=== PATIENT | female | born 1965 | race Two or more races ===

== ENCOUNTER 2016-12-09 06:17 | Day surgery (SDC) | payer OTHER ==
[2016-12-08 13:16] VITALS: BMI 36.2
[~2016-12-09 06:17] MED LIST: ceFAZolin SODIUM 1 GM VIAL IVPB ONE
[2016-12-09] MEDS ORDERED: ROPIVACAINE HCL 0.5% 30ML VIAL ONE (07:46)
[2016-12-09] MEDS ORDERED: MIDAZOLAM HCL 2 MG/2 ML SINGLE DOSE VIAL ONE ×2 (07:47)
--- NOTE | 2016-12-09 08:10 | HP ---
Admitting History and Physical - Admission Chief Complaint: Pelvic pain History of Present Illness: 51 yo Para 1, with Leiomyoma of the uterus is Pre op for abdominal hysterectomy. History Source: Patient Limitations to Obtaining History: No Limitations - Past Medical History ...LMP: 11/28/16 ...: No - Past Surgical History Past Surgical History: Yes: None - Smoking History Smoking history: Never smoked Have you smoked in the past 12 months: No - Alcohol/Substance Use Hx Alcohol Use: No History of Substance Use: reports: None - Social History Usual Living Arrangement: Yes: Alone History of Recent Travel: No Home Medications - Allergies Allergies/Adverse Reactions: Allergies Allergy/AdvReac Type Severity Reaction Status Date / Time No Known Drug Allergies Allergy Verified 12/09/16 07:13 - Home Medications Home Medications: Ambulatory Orders Amlodipine Besylate 5 mg PO DAILY 12/08/16 Family Disease History - Family Disease History Family History: Unremarkable Review of Systems - Review of Systems Constitutional: reports: No Symptoms Eyes: reports: No Symptoms HENT: reports: No Symptoms Neck: reports: No Symptoms Cardiovascular: reports: No Symptoms Respiratory: reports: No Symptoms Gastrointestinal: reports: No Symptoms Genitourinary: reports: Pain Breasts: reports: No Symptoms Reported Musculoskeletal: reports: No Symptoms Integumentary: reports: No Symptoms Neurological: reports: No Symptoms Endocrine: reports: No Symptoms Hematology/Lymphatic: reports: No Symptoms Psychiatric: reports: No Symptoms Pain Intensity: 3 Physical Examination Vital Signs: Vital Signs Temperature 97.6 F 12/09/16 07:03 Pulse Rate 71 12/09/16 07:03 Respiratory Rate 20 12/09/16 07:03 Blood Pressure 121/76 12/09/16 07:03 O2 Sat by Pulse Oximetry (%) 99 12/09/16 07:03 Constitutional: Yes: Well Nourished Eyes: Yes: Conjunctiva Clear HENT: Yes: Atraumatic Neck: Yes: Supple, Trachea Midline Cardiovascular: Yes: Regular Rate and Rhythm Respiratory: Yes: Regular, CTA Bilaterally Gastrointestinal: Yes: Normal Bowel Sounds Breast(s): Yes: WNL Musculoskeletal: Yes: WNL Extremities: Yes: WNL Neurological: Yes: Alert, Oriented ...Motor Strength: WNL Psychiatric: Yes: Alert, Oriented Problem List - Problems (1) Leiomyoma of uterus Code(s): D25.9 - LEIOMYOMA OF UTERUS, UNSPECIFIED Assessment/Plan Leiomyoma of the uterus Pre op for Hysterectomy Consent signed Anesthesia to see patient
--- NOTE | 2016-12-09 08:11 | OP ---
Operative Note - Note: Operative Date: 12/09/16 Pre-Operative Diagnosis: Leiomyoma of the uterus Operation: Abdominal hysterectomy Findings: Multiple Intramural myomas Post-Operative Diagnosis: Same as Pre-op Surgeon: Dolores Reis [employer] Sales Representative: Yara Astudillo Anesthesia: General Specimens Removed: Uterus / Tubes Estimated Blood Loss (mls): 150
[2016-12-09] MEDS ORDERED: ceFAZolin SODIUM 1 GM VIAL ONE (08:22)
[2016-12-09] MEDS ORDERED: PROPOFOL 20 ML ONE ×2 (08:22)
[2016-12-09] MEDS ORDERED: LIDOCAINE HCL/PF 2% SDV 5ML VIAL ONE (08:22)
[2016-12-09] MEDS ORDERED: ceFAZolin SODIUM 1 GM VIAL IVPB ONE (08:47)
[2016-12-09] MEDS ORDERED: DEXAMETHASONE SOD PHOSPHATE 4 MG/1 ML VIAL ONE (09:32)
[2016-12-09] MEDS ORDERED: NEOSTIGMINE METHYLSULFATE 0.5 MG/ML - 10 ML MDV ONE (09:32)
[2016-12-09] MEDS ORDERED: GLYCOPYRROLATE 0.2 MG/1 ML VIAL ONE (09:32)
[2016-12-09] MEDS ORDERED: IBUPROFEN 800 MG/8 ML IJ IVPB PRN (10:10)
[2016-12-09] MEDS ORDERED: CEFAZOLIN (PRE-DOCKED) 50 ML IVPB SCH (10:15)
[2016-12-09] MEDS ORDERED: ONDANSETRON 4 MG/2 ML VIAL IVPUSH PRN (10:26)
[2016-12-09] MEDS ORDERED: ACETAMINOPHEN 1000 MG/100 ML VIAL (NON FORMULARY) IVPB PRN (10:27)
[2016-12-09] MEDS ORDERED: HYDROmorphone HCL CARPU-JECT 2 MG/1 ML DISP.SYRIN ONE (10:31)
[2016-12-09] MEDS: HYDROmorphone HCL CARPU-JECT 1 MG/1 ML DISP.SYRIN IVPUSH PRN ×2 (10:45→11:40)
[2016-12-09] MEDS: LACTATED RINGERS SOLUTION 1,000 ML IV SCH (14:02)
[2016-12-09] MEDS: DEXTROSE 5%-LACTATED RINGERS 1,000 ML IV SCH (14:02)
[2016-12-09] MEDS: CEFAZOLIN (PRE-DOCKED) 50 ML IVPB SCH (18:22)
[2016-12-10] MEDS: oxyCODONE HCL 5 MG TABLET PO PRN ×2 (01:18→10:43)
[2016-12-10] MEDS: CEFAZOLIN (PRE-DOCKED) 50 ML IVPB SCH (01:18)
[2016-12-10 08:49] LABS: MCH 29.9 pg (25.7-33.7); MCHC 34.2 g/dl (32.0-36.0); MEAN CELL VOLUME 87.6 fl (80-96); MEAN PLT VOLUME 9.4 fl (7.5-11.1); PLATELET COUNT 303 K/MM3 (134-434); RDW 13.6 % (11.6-15.6); WHITE BLOOD COUNT 14.8 K/mm3 (4.0-10.0)
[2016-12-10] MEDS ORDERED: ACETAMINOPHEN 325 MG TABLET (FP) ONE (10:36)
[2016-12-10] MEDS: DEXTROSE 5%-LACTATED RINGERS 1,000 ML IV SCH (10:41)
[2016-12-10] MEDS: LACTATED RINGERS SOLUTION 1,000 ML IV SCH (10:42)
--- NOTE | 2016-12-10 10:47 | PN ---
Progress Note, Physician Chief Complaint: Post op History of Present Illness: 51 yo status post Subtotal hysterectomy, seen and evaluated. She's ambulating and tolerates regular diet. She c/o gas pain. - Current Medication List Current Medications: Active Medications Dextrose/Lactated Ringer's (D5-Lr -) 1,000 mls @ 125 mls/hr IV ASDIR TERE Last Admin: 12/09/16 14:02 Dose: Not Given Lactated Ringer's (Lactated Ringers Solution) 1,000 mls @ 125 mls/hr IV ASDIR TERE Last Admin: 12/09/16 14:02 Dose: Not Given Ibuprofen (Caldolor Injection -) 800 mg IVPB Q8H PRN PRN Reason: FEVER Last Admin: 12/09/16 12:15 Dose: 800 mg Oxycodone HCl (Roxicodone -) 5 mg PO Q4H PRN PRN Reason: PAIN Last Admin: 12/10/16 01:18 Dose: 5 mg - Objective Vital Signs: Vital Signs Temperature 98.4 F 12/10/16 06:00 Pulse Rate 85 12/10/16 06:00 Respiratory Rate 20 12/10/16 06:00 Blood Pressure 112/71 12/10/16 06:00 O2 Sat by Pulse Oximetry (%) 98 12/09/16 17:00 Constitutional: Yes: Well Nourished Eyes: Yes: Conjunctiva Clear HENT: Yes: Atraumatic Neck: Yes: Trachea Midline Cardiovascular: Yes: Regular Rate and Rhythm Respiratory: Yes: Regular, CTA Bilaterally Gastrointestinal: Yes: Normal Bowel Sounds Genitourinary: Yes: Other ( Fernández catheter removed) Wound/Incision: Yes: Dressing Dry and Intact Neurological: Yes: Alert, Oriented ...Motor Strength: WNL Psychiatric: Yes: Alert, Oriented Labs: CBC, BMP 12/10/16 08:15 Problem List - Problems (1) Leiomyoma of uterus Code(s): D25.9 - LEIOMYOMA OF UTERUS, UNSPECIFIED (2) Status post subtotal hysterectomy Code(s): Z90.711 - ACQUIRED ABSENCE OF UTERUS WITH REMAINING CERVICAL STUMP Assessment/Plan Status post Subtotal Hysterectomy and bilateral Salpingectomy. Ambulation Analgesia PRN pain Regular diet D/C IVF Discharge home F/U with MD in one week
[2016-12-10] MEDS ORDERED: IBUPROFEN 600 MG TABLET (FP) PO PRN (10:49)
--- NOTE | 2016-12-10 10:49 | DS ---
Physical Examination Vital Signs: Vital Signs Temperature 98.4 F 12/10/16 06:00 Pulse Rate 85 12/10/16 06:00 Respiratory Rate 20 12/10/16 06:00 Blood Pressure 112/71 12/10/16 06:00 O2 Sat by Pulse Oximetry (%) 98 12/09/16 17:00 Constitutional: Yes: Well Nourished Eyes: Yes: Conjunctiva Clear HENT: Yes: Atraumatic Neck: Yes: Supple, Trachea Midline Cardiovascular: Yes: Regular Rate and Rhythm Respiratory: Yes: Regular, CTA Bilaterally Gastrointestinal: Yes: Normal Bowel Sounds Wound/Incision: Yes: Dressing Dry and Intact Neurological: Yes: Alert, Oriented ...Motor Strength: WNL Psychiatric: Yes: Alert, Oriented Labs: CBC, BMP 12/10/16 08:15 Discharge Summary Reason For Visit: INTRAMURAL LEIOMYOMA OF UTERUS Current Active Problems Leiomyoma of uterus (Acute) Status post subtotal hysterectomy (Acute) Procedures: Principal: Subtotal Hysterectomy / Bilateral salpingectomy Hospital Course: Routine Post op care Condition: Good - Instructions Diet, Activity, Other Instructions: Regular diet No driving, no lifting x 4 weeks F/U with MD in 1 week. - Home Medications Comprehensive Discharge Medication List: Ambulatory Orders Amlodipine Besylate 5 mg PO DAILY 12/08/16
[2016-12-10] MEDS ORDERED: SIMETHICONE 80 MG TAB.CHEW (FP) PO PRN (10:50)
[2016-12-10] MEDS ORDERED: ACETAMINOPHEN 500 MG TABLET (FP) PO PRN (10:50)
[2016-12-10 15:12] VITALS: BP 105/52; PULSE 89; TEMP 98.7
--- NOTE | 2016-12-12 13:08 | PATH ---
Surgical Pathology Report Patient Name: SHELLEY BERRY [facility]. Rec. #: [id number] /Age/Gender: 1965 (Age: 51) / F Account: [id number] Location: AMBULATORY SURG Taken: 12/09/2016 Received: 12/09/2016 Reported: 12/12/2016 Physicians: Dolores Reis M.D. Specimen(s) Received A: RIGHT FALLOPIAN TUBE B: LEFT FALLOPIAN TUBE C: FIBROID UTERUS Clinical History Intramural leiomyoma of uterus Final Diagnosis A. FALLOPIAN TUBE, RIGHT, SALPINGECTOMY: BENIGN FALLOPIAN TUBE WITH FOCAL FIBROVASCULAR ADHESIONS. B. FALLOPIAN TUBE, LEFT, SALPINGECTOMY: BENIGN FALLOPIAN TUBE WITH FOCAL FIBROVASCULAR ADHESIONS. C. UTERUS, SUPRACERVICAL HYSTERECTOMY: CERVICAL STUMP: WITHOUT SIGNIFICANT PATHOLOGIC CHANGE. ENDOMETRIUM: WEAKLY PROLIFERATIVE, WITH EVIDENCE OF CHRONIC ENDOMETRITIS. MYOMETRIUM: FOCAL ADENOMYOSIS, LEIOMYOMATA (LARGEST 6.5 CM). UTERINE SEROSA: WITHOUT SIGNIFICANT PATHOLOGIC CHANGES. Electronically Signed Daniel Madden M.D. Gross Description A. Received in formalin labeled "fallopian tube left" is a 2.3 cm in length fimbriated fallopian tube. The outer surface is carlos-pink. . Sectioning reveals a pinpoint lumen. Photogrammetric Compilation Specialist sections are submitted in 2 cassettes as follows: 1-fimbria; 2-cross sections of fallopian tube. B. Received in formalin labeled "fallopian tube right" is a 3.2 cm in length fimbriated fallopian tube. The outer surface is carlos-pink.. Sectioning reveals a pinpoint lumen. Photogrammetric Compilation Specialist sections are submitted in 2 cassettes as follows: 1-fimbria; 2-cross sections of fallopian tube. C. Received in formalin labeled "fibroid uterus" is a 257 g supracervically amputated uterus with no attached adnexa. The specimen measures 8.2 cm from left to right, 7.5 cm from superior to inferior and 7.5 cm from anterior to posterior. The serosa is pink-carlos with focal bulging subserosal nodules. The endometrial cavity measures 6 cm in length 2.5 cm from cornu to cornu. The endometrium is carlos-red and averages 0.1 cm in thickness. The myometrium displays multiple intramural nodules, measuring up to 6.5 cm in greatest dimension. The cut surface of the subserosal and intramural nodules is carlos-pink, firm to rubbery and displays whirled architecture. No areas of hemorrhage or necrosis are identified. The remaining myometrium is carlos-pink and averages 3.6 cm in thickness. Photogrammetric Compilation Specialist sections are submitted in 10 cassettes as follows: 1-cervical stump margin of resection; 8-2-rbozcgda endomyometrium; 6-6-ascsjqfkf endomyometrium; 6-subserosal nodules; 7-intramural nodules; 0-87-qzvsywk intramural nodule. 12/09/201612/09/2016
--- NOTE | 2017-01-17 19:31 | OP ---
DATE OF OPERATION: 12/09/2016 PREOPERATIVE DIAGNOSIS: Fibroid uterus. POSTOPERATIVE DIAGNOSIS: Fibroid uterus. PROCEDURE: Total abdominal hysterectomy. SURGEON: CHASIDY WALKER MD BIG DATA SOFTWARE ENGINEER: Yara Khan MD ANESTHESIA: General. COMPLICATIONS: None. ESTIMATED BLOOD LOSS: 200 mL. DESCRIPTION OF PROCEDURE: The patient was taken to the operating room where general anesthesia was administered. The patient was then prepped and draped in appropriate sterile fashion was made and carried down through the underlying of fascia. The fascia was incised in the midline and extended laterally. The muscle of the anterior wall was in the midline by sharp and blunt dissection. The peritoneum was grasped between 2 pickups, elevated and entered sharply with the Metzenbaum scissors. The pelvis was then examined. An enlarged uterus was found and the uterus was exteriorized. Two pink clamps were placed on the cornua and used for retraction. The bowel was packed with moist laparotomy sponges. The round ligaments on both sides were clamping, using the LigaSure device, burned and cut. The anterior leaf of the broad ligament was incised along the bladder reflection to the midline from both sides. The bladder was then gently dissected off the lower uterine segment cervix with a sponge stick. The infundibulopelvic ligament on both sides were then clamped and using the LigaSure device, burned and cut. Hemostasis was visualized. The uterine arteries were skeletonized bilaterally, clamped, using the LigaSure device burned and cut. Again, hemostasis was assured. The uterosacral ligaments were clamped on both sides and using the LigaSure device burned and cut. The cervix and uterus were amputated with the cautery. The vaginal cuff angles were closed with [id number] stitches and transfixed to the ipsilateral cardinal and uterosacral ligament. The remainder of the vaginal cuff was closed with a series of interrupted 0 Vicryl [id number]-sdblu sutures. Hemostasis was assured. The pelvis was irrigated copiously with warm normal saline. All laparotomy sponges and instruments were removed from the abdomen. The fascia was closed with running 0 Vicryl and hemostasis was assured. The skin was closed with 0 Vicryl in a subcuticular fashion. Sponge, lap, needle, and instrument counts were correct x2. The patient was taken to the PACU in stable condition. PATHOLOGY: Uterus, cervix and tubes. Sha [id number]
== END 2016-12-10 15:38 | disposition home or self-care (01) ==
LOC: JASUSAT 06:17 → J8W 13:34 → JASUSAT 12-10 15:38
PROVIDERS: ATTEND Obstetrics & Gynecology
PROC: 0UTC0ZZ Resection of Cervix, Open Approach (ICD-10-PCS; 2016-12-09)
PROC: 0UB70ZZ Excision of Bilateral Fallopian Tubes, Open Approach (ICD-10-PCS; 2016-12-09)
PROC: 0UT90ZZ Resection of Uterus, Open Approach (ICD-10-PCS; principal; 2016-12-09 08:00)
DX: D25.9 Leiomyoma of uterus, unspecified (principal); D25.1 Intramural leiomyoma of uterus; N71.9 Inflammatory disease of uterus, unspecified
CPT/HCPCS: 36415; 84703; 85027; 86850; 86900; 86901; 88305-TC; 88307-TC; 94760

== ENCOUNTER 2018-03-22 01:37 | Inpatient (IN) | payer OTHER ==
[2018-03-22] MEDS ORDERED: SODIUM CHLORIDE 1,000 ML IV STA (02:07)
[2018-03-22] MEDS ORDERED: ONDANSETRON 4 MG/2 ML VIAL IVPUSH ONE (02:07)
[2018-03-22] MEDS ORDERED: morphine CARPU-JECT 4 MG/1 ML DISP.SYRIN IVPUSH ONE ×3 (02:07→10:27)
[2018-03-22] MEDS ORDERED: ONDANSETRON 4 MG/2 ML VIAL ONE (02:15)
[2018-03-22] MEDS ORDERED: morphine SULFATE 4 MG/ML VIAL ONE ×3 (02:15→10:29)
--- NOTE | 2018-03-22 02:20 | PDOC ---
Attending Attestation - HPI HPI: 03/22/18 02:29 The patient is a 53 year old female, with a significant PMH of HTN, who presents to the emergency department with abdomen pain that began last night around 8:30 pm. The patient states constant pain is located to the right upper quadrant that radiates to the back accompanied with mild nausea. The patient reports no alleviating factors. The patient denies chest pain, shortness of breath, headache and dizziness.Denies fever, chills, vomit, diarrhea and constipation. Denies dysuria, frequency, urgency and hematuria. Allergies: NKDA Past surgical history: None reported Social history: None reported PCP: David Oneil Documentation prepared by Harmony Hernandez, acting as medical consultant for Blue Eastman MD. <Harmony Hernandez - Last Filed: 03/22/18 02:29> - Resident Resident Name: Jamie Huertas - ED Attending Attestation I have performed the following: I have examined & evaluated the patient, The case was reviewed & discussed with the resident, I agree w/resident's findings & plan, Exceptions are as noted - Physicial Exam PE: 03/22/18 05:28 *Physical Exam General Appearance: Yes: Appropriately Dressed. No: Apparent Distress, Intoxicated HEENT: positive: EOMI, JLUIS, Normal ENT Inspection, Normal Voice, TMs Normal, Pharynx Normal. negative: Pale Conjunctivae, Photophobia, Scleral Icterus (R), Scleral Icterus (L) Neck: positive: Trachea midline, Normal Thyroid, Supple. negative: Tender, Rigid, Carotid bruit, Stridor, Lymphadenopathy (R), Lymphadenopathy (L), Thyromegaly Respiratory/Chest: positive: Lungs Clear, Normal Breath Sounds. negative: Chest Tender, Respiratory Distress, Accessory Muscle Use, Labored Respiration, RES, Crackles, Rales, Rhonchi, Stridor, Wheezing, Dullness Cardiovascular: positive: Regular Rhythm, Regular Rate, S1, S2. negative: Edema , JVD, Murmur, Bradycardia, Tachycardia Vascular Pulses: Dorsalis-Pedis (R): 2+, Doralis-Pedis (L): 2+ Gastrointestinal/Abdominal: positive: Normal Bowel Sounds, Flat, Soft. RUQ/ Epigastric tenderness negative: Organomegaly, Pulsatile Mass, Increased Bowel Sounds, Decreased BS, Distended, Guarding, Rebound, Hernia, Hepatomegaly, Spleenomegaly Lymphatic: negative: Adenopathy, Tenderness Musculoskeletal: positive: Normal Inspection. negative: CVA Tenderness, Decreased Range of Motion Extremity: positive: Normal Capillary Refill, Normal Inspection, Normal Range of Motion, Pelvis Stable. negative: Tender, Pedal Edema, Swelling, Erythema Integumentary: positive: Normal Color, Dry, Warm. negative: Cyanotic, Erythema , Jaundice, Rash Neurologic: positive: excavator operator II-XII NML intact, Fully Oriented, Alert, Normal Mood/ Affect, Motor Strength 5/5. negative: EOM Palsy, Facial Droop, Sensory Deficit - Medical Decision Making 03/26/18 19:19 Pt was treated and released <Blue Eastman - Last Filed: 03/26/18 19:20>
--- NOTE | 2018-03-22 02:30 | PDOC ---
History of Present Illness - General Chief Complaint: Pain, Acute Stated Complaint: ABDOMINAL PAIN Time Seen by Provider: 03/22/18 01:55 History Source: Patient Exam Limitations: No Limitations - History of Present Illness Initial Comments: 03/22/18 02:24 Patient is a 53F with history of HTN here today complaining of RUQ abdominal pain that onset 6 hours prior to presentation. Patient endorses associated nausea. Denies vomiting, fevers, chills. Last bowel movement today. No pain with urination. Has prior . Patient states radiates to her epigastrium and back. Past History - Past Medical History Allergies/Adverse Reactions: Allergies Allergy/AdvReac Type Severity Reaction Status Date / Time No Known Drug Allergies Allergy Verified 03/22/18 02:01 Home Medications: Ambulatory Orders Amlodipine Besylate 5 mg PO DAILY 12/08/16 Ibuprofen [Motrin -] 600 mg PO Q4H PRN #60 tablet 12/10/16 Anemia: No Asthma: No Cancer: No Cardiac Disorders: No CVA: No COPD: No CHF: No Dementia: No Diabetes: No GI Disorders: No Disorders: No HTN: Yes Hypercholesterolemia: No Liver Disease: No Seizures: No Thyroid Disease: No - Surgical History Abdominal Surgery: No Appendectomy: No Cardiac Surgery: No Cholecystectomy: No Lung Surgery: No Neurologic Surgery: No Orthopedic Surgery: No - Immunization History Immunization Up to Date: Yes - Suicide/Smoking/Psychosocial Hx Smoking History: Never smoked Have you smoked in the past 12 months: No Information on smoking cessation initiated: No Hx Alcohol Use: No Drug/Substance Use Hx: No Substance Use Type: None Hx Substance Use Treatment: No Review of Systems - Review of Systems Comments:: 03/22/18 02:27 GENERAL/CONSTITUTIONAL: No fever or chills. No weakness. HEAD, EYES, EARS, NOSE AND THROAT: No change in vision. No sore throat. CARDIOVASCULAR: No chest pain or shortness of breath RESPIRATORY: No cough, wheezing, or hemoptysis. GASTROINTESTINAL: +nausea. No vomiting, diarrhea or constipation. GENITOURINARY: No dysuria, frequency, or change in urination. MUSCULOSKELETAL: No joint or muscle swelling or pain. No neck or back pain. SKIN: No rash NEUROLOGIC: No headache, vertigo, loss of consciousness, or change in strength/ sensation. ENDOCRINE: No increased thirst. No abnormal weight change HEMATOLOGIC/LYMPHATIC: No anemia, easy bleeding, or history of blood clots. ALLERGIC/IMMUNOLOGIC: No hives or skin allergy. *Physical Exam - Vital Signs Last Vital Signs Temp Pulse Resp BP Pulse Ox 97.5 F L 68 20 148/89 99 03/22/18 02:01 03/22/18 02:01 03/22/18 02:01 03/22/18 02:01 03/22/18 02:01 - Physical Exam Comments: 03/22/18 02:28 GENERAL: Awake, alert, and fully oriented, in no acute distress HEAD: No signs of trauma, normocephalic, atraumatic EYES: PERRLA, EOMI, sclera anicteric, conjunctiva clear ENT: Auricles normal inspection, hearing grossly normal, nares patent, oropharynx clear without exudates. Moist mucosa NECK: Normal ROM, supple, no lymphadenopathy, JVD, or masses LUNGS: No distress, speaks full sentences, clear to auscultation bilaterally HEART: Regular rate and rhythm, normal S1 and S2, no murmurs, rubs or gallops, peripheral pulses normal and equal bilaterally. ABDOMEN: Soft, +aden sign, +RUQ tenderness, no cva tenderness. No guarding, no rebound. No masses EXTREMITIES: Normal inspection, Normal range of motion, no edema. No clubbing or cyanosis. NEUROLOGICAL: Cranial nerves II through XII grossly intact. Normal speech, normal gait, no focal sensorimotor deficits SKIN: Warm, Dry, normal turgor, no rashes or lesions noted. ED Treatment Course - LABORATORY CBC & Chemistry Diagram: 03/22/18 02:23 03/22/18 02:23 - RADIOLOGY Radiology Studies Ordered: Category Date Time Status ABDOMEN & PELVIS CT WITH CONTR [CT] Stat CT Scan 03/22/18 02:21 Ordered CXRPORT [CHEST X-RAY PORTABLE*] [RAD] Stat Radiology 03/22/18 02:08 Ordered Medical Decision Making - Medical Decision Making 03/22/18 02:29 Patient is 53F with history of HTN here today with RUQ tenderness. Vital signs normal and stable. DDx includes, but is not limited to: cholecystitis, pyelo, kidney stone. Will evaluate with abdominal labs and abd ct due to no ultrasound availability until 8am. Treated with fluids, morphine, zofran. Bedside ultrasound shows no stone, normal wall thickness. Will get ct scan. 03/22/18 02:30 EKG shows normal sinus rhythm with rate of 70. No st elevations/depressions. No significant t waves. Normal axis. Normal intervals. 03/22/18 03:38 Labs normal. UA negative. CMP reassuring. CBC normal. 03/22/18 05:[address] Line removed, given warm compress. Patient reports back pain has improved, still has epigastric pain. 03/22/18 05:19 Given pepcid for epigastric pain. Patient will stay for US evaluation. 03/22/18 07:[address] Panchal. *DC/Admit/Observation/Transfer Diagnosis at time of Disposition: Abdominal pain - Discharge Dispostion Condition at time of disposition: Stable - Referrals Referrals: David Oneil MD [Primary Care Provider] - - Patient Instructions - Post Discharge Activity
[2018-03-22 02:35] LABS: BASO % 1.1 % (0-2.0); EOS % 0.5 % (0-4.5); HEMATOCRIT 42.4 % (32.4-45.2); HEMOGLOBIN 14.6 GM/dL (10.7-15.3); LYMPH % 23.2 % (8-40); MCH 30.5 pg (25.7-33.7); MCHC 34.4 g/dl (32.0-36.0); MEAN CELL VOLUME 88.7 fl (80-96); MEAN PLT VOLUME 9.3 fl (7.5-11.1); MONO % 6.2 % (3.8-10.2); PLATELET COUNT 305 K/MM3 (134-434); RBC 4.78 M/mm3 (3.60-5.2); WHITE BLOOD COUNT 9.8 K/mm3 (4.0-10.0)
[2018-03-22 02:57] LABS: URINE APPEARANCE CLOUDY; URINE BILIRUBIN NEGATIVE (<2.0 mg/dL); URINE COLOR LTYELLOW; URINE GLUCOSE (UA) NEGATIVE (NEGATIVE); URINE KETONE NEGATIVE (NEGATIVE); URINE LEUK ESTERASE NEGATIVE (NEGATIVE); URINE NITRITE NEGATIVE (NEGATIVE); URINE PROTEIN NEGATIVE (NEGATIVE); URINE UROBILINOGEN NEGATIVE mg/dL (0.2-1.0)
[2018-03-22 02:58] LABS: ALBUMIN 3.9 g/dl (3.4-5.0); ALK PHOS 137 U/L (45-117); ANION GAP 9 MMOL/L (8-16); BILIRUBIN,TOTAL 0.3 mg/dL (0.2-1.0); BLOOD UREA NITROGEN 12 mg/dL (7-18); CALCIUM 8.6 mg/dL (8.5-10.1); CHLORIDE 102 mmol/L (98-107); CO2 26 mmol/L (21-32); CREATININE 0.8 mg/dL (0.55-1.02); GLUCOSE,RANDOM 135 mg/dL (74-106); LIPASE 78 U/L (73-393); SGPT/ALT 51 U/L (12-78); SODIUM 137 mmol/L (136-145); TOT PROT 8.4 g/dl (6.4-8.2)
[2018-03-22 02:59] LABS: SGOT/AST 26 U/L (15-37)
[2018-03-22 03:00] LABS: POTASSIUM 4.4 mmol/L (3.5-5.1)
[2018-03-22] MEDS ORDERED: FAMOTIDINE 20 MG/50 ML IVPB 20 MG/50 ML MG IVPB ONE ×2 (05:19→05:25)
--- NOTE | 2018-03-22 07:23 | PDOC ---
*Physical Exam - Vital Signs Last Vital Signs Temp Pulse Resp BP Pulse Ox 97.5 F L 73 18 111/79 97 03/22/18 02:01 03/22/18 07:46 03/22/18 07:46 03/22/18 07:46 03/22/18 07:46 <Megan Traylor - Last Filed: 03/22/18 10:23> - Vital Signs Last Vital Signs Temp Pulse Resp BP Pulse Ox 97.5 F L 68 20 148/89 99 03/22/18 02:01 03/22/18 02:01 03/22/18 02:01 03/22/18 02:01 03/22/18 02:01 <AbdulkadirMicheledomenic - Last Filed: 03/22/18 10:50> - Vital Signs Last Vital Signs Temp Pulse Resp BP Pulse Ox 97.5 F L 73 18 111/79 97 03/22/18 02:01 03/22/18 07:46 03/22/18 07:46 03/22/18 07:46 03/22/18 07:46 <Annel Bernal - Last Filed: 03/22/18 11:48> ED Treatment Course - LABORATORY CBC & Chemistry Diagram: 03/22/18 02:23 03/22/18 02:23 - ADDITIONAL ORDERS Additional order review: Laboratory Results 03/22/18 03/22/18 03/22/18 02:47 02:23 02:23 Sodium 137 Potassium 4.4 Chloride 102 Carbon Dioxide 26 Anion Gap 9 BUN 12 Creatinine 0.8 Creat Clearance w eGFR > 60 Random Glucose 135 H Calcium 8.6 Total Bilirubin 0.3 AST 26 ALT 51 Alkaline Phosphatase 137 H Creatine Kinase 129 Troponin I < 0.02 Total Protein 8.4 H Albumin 3.9 Lipase 78 Urine Color Ltyellow Urine Appearance Cloudy Urine pH 8.0 Ur Specific [place] 1.013 Urine Protein Negative Urine Glucose (UA) Negative Urine Ketones Negative Urine Blood Negative Urine Nitrite Negative Urine Bilirubin Negative Urine Urobilinogen Negative Ur Leukocyte Esterase Negative 03/22/18 02:23 RBC 4.78 MCV 88.7 MCHC 34.4 RDW 13.0 MPV 9.3 Neutrophils % 69.0 D Lymphocytes % 23.2 D Monocytes % 6.2 Eosinophils % 0.5 Basophils % 1.1 - Medications Given in the ED: ED Medications Discontinued Medications Generic Name Dose Route Start Last Admin Trade Name Jamal PRN Reason Stop Dose Admin Sodium Chloride 1,000 mls @ 1,000 mls/hr 03/22/18 02:07 03/22/18 02:24 Normal Saline - IV 03/22/18 03:06 1,000 mls/hr ASDIR STA Administration Famotidine/Sodium Chloride 20 mg in 50 mls @ 100 mls/hr 03/22/18 05:19 05:26 Pepcid 20 Mg Premixed Ivpb - IVPB 03/22/18 05:48 100 mls/hr ONCE ONE Administration Morphine Sulfate 4 mg 03/22/18 02:07 03/22/18 02:24 Morphine Injection - IVPUSH 03/22/18 02:08 4 mg ONCE ONE Administration Morphine Sulfate 4 mg 03/22/18 03:18 03/22/18 03:33 Morphine Injection - IVPUSH 03/22/18 03:19 4 mg ONCE ONE Administration Ondansetron HCl 4 mg 03/22/18 02:07 03/22/18 02:24 Zofran Injection IVPUSH 03/22/18 02:08 4 mg ONCE ONE Administration - Additional Consults Time Called: 10:23 (Paged surgery telephone mechanic) Consult/PCP: Dr. Hicks <Megan Traylor - Last Filed: 03/22/18 10:23> - LABORATORY CBC & Chemistry Diagram: 03/22/18 02:23 03/22/18 02:23 - ADDITIONAL ORDERS Additional order review: Laboratory Results 03/22/18 03/22/18 03/22/18 02:47 02:23 02:23 Sodium 137 Potassium 4.4 Chloride 102 Carbon Dioxide 26 Anion Gap 9 BUN 12 Creatinine 0.8 Creat Clearance w eGFR > 60 Random Glucose 135 H Calcium 8.6 Total Bilirubin 0.3 AST 26 ALT 51 Alkaline Phosphatase 137 H Creatine Kinase 129 Troponin I < 0.02 Total Protein 8.4 H Albumin 3.9 Lipase 78 Urine Color Ltyellow Urine Appearance Cloudy Urine pH 8.0 Ur Specific [place] 1.013 Urine Protein Negative Urine Glucose (UA) Negative Urine Ketones Negative Urine Blood Negative Urine Nitrite Negative Urine Bilirubin Negative Urine Urobilinogen Negative Ur Leukocyte Esterase Negative 03/22/18 02:23 RBC 4.78 MCV 88.7 MCHC 34.4 RDW 13.0 MPV 9.3 Neutrophils % 69.0 D Lymphocytes % 23.2 D Monocytes % 6.2 Eosinophils % 0.5 Basophils % 1.1 - Medications Given in the ED: ED Medications Discontinued Medications Generic Name Dose Route Start Last Admin Trade Name Jamal PRN Reason Stop Dose Admin Sodium Chloride 1,000 mls @ 1,000 mls/hr 03/22/18 02:07 03/22/18 02:24 Normal Saline - IV 03/22/18 03:06 1,000 mls/hr ASDIR STA Administration Famotidine/Sodium Chloride 20 mg in 50 mls @ 100 mls/hr 03/22/18 05:19 05:26 Pepcid 20 Mg Premixed Ivpb - IVPB 03/22/18 05:48 100 mls/hr ONCE ONE Administration Morphine Sulfate 4 mg 03/22/18 02:07 03/22/18 02:24 Morphine Injection - IVPUSH 03/22/18 02:08 4 mg ONCE ONE Administration Morphine Sulfate 4 mg 03/22/18 03:18 03/22/18 03:33 Morphine Injection - IVPUSH 03/22/18 03:19 4 mg ONCE ONE Administration Ondansetron HCl 4 mg 03/22/18 02:07 03/22/18 02:24 Zofran Injection IVPUSH 03/22/18 02:08 4 mg ONCE ONE Administration <Teresa Panchal - Last Filed: 03/22/18 10:50> - LABORATORY CBC & Chemistry Diagram: 03/22/18 02:23 03/22/18 02:23 - ADDITIONAL ORDERS Additional order review: Laboratory Results 03/22/18 03/22/18 03/22/18 02:47 02:23 02:23 Sodium 137 Potassium 4.4 Chloride 102 Carbon Dioxide 26 Anion Gap 9 BUN 12 Creatinine 0.8 Creat Clearance w eGFR > 60 Random Glucose 135 H Calcium 8.6 Total Bilirubin 0.3 AST 26 ALT 51 Alkaline Phosphatase 137 H Creatine Kinase 129 Troponin I < 0.02 Total Protein 8.4 H Albumin 3.9 Lipase 78 Urine Color Ltyellow Urine Appearance Cloudy Urine pH 8.0 Ur Specific [place] 1.013 Urine Protein Negative Urine Glucose (UA) Negative Urine Ketones Negative Urine Blood Negative Urine Nitrite Negative Urine Bilirubin Negative Urine Urobilinogen Negative Ur Leukocyte Esterase Negative 03/22/18 02:23 RBC 4.78 MCV 88.7 MCHC 34.4 RDW 13.0 MPV 9.3 Neutrophils % 69.0 D Lymphocytes % 23.2 D Monocytes % 6.2 Eosinophils % 0.5 Basophils % 1.1 - Medications Given in the ED: ED Medications Discontinued Medications Generic Name Dose Route Start Last Admin Trade Name Jamal PRN Reason Stop Dose Admin Sodium Chloride 1,000 mls @ 1,000 mls/hr 03/22/18 02:07 03/22/18 02:24 Normal Saline - IV 03/22/18 03:06 1,000 mls/hr ASDIR STA Administration Famotidine/Sodium Chloride 20 mg in 50 mls @ 100 mls/hr 03/22/18 05:19 05:26 Pepcid 20 Mg Premixed Ivpb - IVPB 03/22/18 05:48 100 mls/hr ONCE ONE Administration Morphine Sulfate 4 mg 03/22/18 02:07 03/22/18 02:24 Morphine Injection - IVPUSH 03/22/18 02:08 4 mg ONCE ONE Administration Morphine Sulfate 4 mg 03/22/18 03:18 03/22/18 03:33 Morphine Injection - IVPUSH 03/22/18 03:19 4 mg ONCE ONE Administration Morphine Sulfate 4 mg 03/22/18 10:27 03/22/18 10:29 Morphine Injection - IVPUSH 03/22/18 10:28 4 mg ONCE ONE Administration Ondansetron HCl 4 mg 03/22/18 02:07 03/22/18 02:24 Zofran Injection IVPUSH 03/22/18 02:08 4 mg ONCE ONE Administration <Annel Bernal - Last Filed: 03/22/18 11:48> Medical Decision Making - Medical Decision Making 53 year old female signed out to me in stable condition but intractable abdominal pain. Originally pain was in RUQ but on my exam it was diffuse in the bilateral upper quadrants. There is sludge and choleliths in her gallbladder and she is still very uncomfortable despite multiple rounds of IV morphine. Spoke to Dr. Hicks and he will evaluate the patient for surgery. Patent signed out to DAISY Raman. 03/22/18 10:50 <Teresa Panchal - Last Filed: 03/22/18 10:50> - Medical Decision Making pt signed out from overnight attg Dr. Harding pending RUQ sono, VS wnl, no fever biliary stones present with sludge, but no signs suggestive of acute brad; normal CBD due to persistent RUQ pain, normal LFts, lipase, surgery cs with Dr. Hicks for symptomatic cholelithiasis. admit for pain control, serial exams and labs, surg cs and medical management for persistent symptomatic cholelithiasis. pt made aware of impression and plan , agreeable 03/22/18 11:47 03/22/18 11:48 <Annel Bernal - Last Filed: 03/22/18 11:48> *DC/Admit/Observation/Transfer <Megan Traylor - Last Filed: 03/22/18 10:23> <Teresa Panchal - Last Filed: 03/22/18 10:50> - Discharge Dispostion Decision to Admit order: Yes <Annel Bernal - Last Filed: 03/22/18 11:48> Diagnosis at time of Disposition: Abdominal pain Qualifiers: Abdominal location: generalized Qualified Code(s): R10.84 - Generalized abdominal pain Cholelithiasis Qualifiers: Cholelithiasis location: gallbladder Cholecystitis presence: without cholecystitis - Discharge Dispostion Condition at time of disposition: Stable
[2018-03-22] MEDS: SODIUM CHLORIDE 1,000 ML IV SCH ×2 (10:29→23:52)
[2018-03-22] MEDS ORDERED: METOPROLOL TARTRATE 5 MG/5 ML VIAL IVPUSH PRN (10:56)
--- NOTE | 2018-03-22 10:58 | HP ---
Admitting History and Physical - Primary Care Physician PCP: Arielle Ponce I - Admission Chief Complaint: Abdominal pain History Source: Family Member, Medical Record Limitations to Obtaining History: Language Barrier - Past Medical History ...LMP: 11/28/16 - Past Surgical History Past Surgical History: Yes: None - Smoking History Smoking history: Never smoked Have you smoked in the past 12 months: No - Alcohol/Substance Use Hx Alcohol Use: No History of Substance Use: reports: None - Social History History of Recent Travel: No Home Medications - Allergies Allergies/Adverse Reactions: Allergies Allergy/AdvReac Type Severity Reaction Status Date / Time No Known Drug Allergies Allergy Verified 03/22/18 02:01 - Home Medications Home Medications: Ambulatory Orders Amlodipine Besylate 5 mg PO DAILY 12/08/16 Ibuprofen [Motrin -] 600 mg PO Q4H PRN #60 tablet 12/10/16 Review of Systems - Review of Systems Eyes: reports: No Symptoms HENT: reports: No Symptoms Neck: reports: No Symptoms Cardiovascular: reports: No Symptoms Respiratory: reports: No Symptoms Gastrointestinal: reports: Abdominal Pain, Nausea Genitourinary: reports: No Symptoms Breasts: reports: No Symptoms Reported Musculoskeletal: reports: No Symptoms Integumentary: reports: No Symptoms Neurological: reports: No Symptoms Endocrine: reports: No Symptoms Hematology/Lymphatic: reports: No Symptoms Psychiatric: reports: No Symptoms Physical Examination Vital Signs: Vital Signs Temperature 97.5 F L 03/22/18 02:01 Pulse Rate 73 03/22/18 07:46 Respiratory Rate 18 03/22/18 07:46 Blood Pressure 111/79 03/22/18 07:46 O2 Sat by Pulse Oximetry (%) 97 03/22/18 07:46 Constitutional: Yes: Well Nourished, No Distress, Calm Labs: CBC, BMP 03/22/18 02:23 03/22/18 02:23 Imaging - Results Cat Scan: Report Reviewed Ultrasound: Report Reviewed Problem List - Problems (1) Abdominal pain Code(s): R10.9 - UNSPECIFIED ABDOMINAL PAIN
[2018-03-22 11:58] LABS: INR 1.1 (0.83-1.09); PROTHROMBIN TIME (PATIENT) 12.4 SEC (9.7-13.0)
--- NOTE | 2018-03-22 15:33 | EKG ---
Test Reason : Blood Pressure : / mmHG Vent. Rate : 070 BPM Atrial Rate : 070 BPM P-R Int : 160 ms QRS Dur : 084 ms QT Int : 400 ms P-R-T Axes : 052 051 045 degrees QTc Int : 432 ms NORMAL SINUS RHYTHM NORMAL ECG NO PREVIOUS ECGS AVAILABLE Confirmed by Giovanna Santos ([id number]) on 03/22/2018 3:33:08 PM Referred By: Confirmed By:Giovanna Santos
--- NOTE | 2018-03-22 15:40 | CON.GI ---
Consult Consult Specialty:: GI Reason for Consultation:: Acute onset post-prandialabdominal pain - History of Present Illness History of Present Illness: Chart reviewed. A 53F developed acute onset, post-prandial (Rice for dinned, per pt's daughter ) epigastric pain at 8 pm last night. No nausea, vomiting, diarrhea, fever, chills, dysphagia, odynophagia, jaundice, melena, hematochezia, hematemesis. Asymptomatic prior to last night. No prior episodes of the same. No significant family history. Takes NSAIDs PRN. Had normal lipase, CBC, BMP, Bili, ALT, AST, mild ALP elevation. US of the liver showed cholelithiasis and distend GB, CT - distended GB. - History Source History Provided By: Patient, Family Member, Medical Record - Past Medical History ...LMP: 11/28/16 - Past Surgical History Past Surgical History: Yes: None - Alcohol/Substance Use Hx Alcohol Use: No History of Substance Use: reports: None - Smoking History Smoking history: Never smoked Have you smoked in the past 12 months: No - Social History History of Recent Travel: No Home Medications - Allergies Allergies/Adverse Reactions: Allergies Allergy/AdvReac Type Severity Reaction Status Date / Time No Known Drug Allergies Allergy Verified 03/22/18 02:01 - Home Medications Home Medications: Ambulatory Orders Amlodipine Besylate 5 mg PO DAILY 12/08/16 Ibuprofen [Motrin -] 600 mg PO Q4H PRN #60 tablet 12/10/16 Family Disease History - Family Disease History Family History: Unremarkable (non-contrib) Review of Systems Findings/Remarks: as per HPI, ED, H&P Physical Exam-GI Vital Signs: Vital Signs Temperature 97.5 F L 03/22/18 12:22 Pulse Rate 80 03/22/18 12:22 Respiratory Rate 17 03/22/18 12:22 Blood Pressure 112/74 03/22/18 12:22 O2 Sat by Pulse Oximetry (%) 98 03/22/18 14:16 Constitutional: Yes: Well Nourished, No Distress, Calm Eyes: Yes: Conjunctiva Clear. No: Sclera Icterus HENT: Yes: Atraumatic Neck: Yes: Supple Cardiovascular: Yes: Regular Rate and Rhythm Respiratory: Yes: Regular, CTA Bilaterally Gastrointestinal Inspection: No: Ascites, Distention ...Auscultate: Yes: Normoactive Bowel Sounds ...Palpate: Yes: Soft. No: Firm/Rigid, Guarding, Tenderness, Tenderness, Epigastium, Tenderness, Rebound Neurological: Yes: Alert, Oriented Labs: CBC, BMP 03/22/18 02:23 03/22/18 02:23 INR, PTT INR 1.10 (0.83-1.09) H 03/22/18 11:03 Laboratory Last Values WBC 9.8 K/mm3 (4.0-10.0) 03/22/18 02:23 RBC 4.78 M/mm3 (3.60-5.2) 03/22/18 02:23 Hgb 14.6 GM/dL (10.7-15.3) 03/22/18 02: Hct 42.4 % (32.4-45.2) 03/22/18 02:23 MCV 88.7 fl (80-96) 03/22/18 02: MCH 30.5 pg (25.7-33.7) 03/22/18 02: MCHC 34.4 g/dl (32.0-36.0) 03/22/18 02: RDW 13.0 % (11.6-15.6) 03/22/18 02:23 Plt Count 305 K/MM3 (134-434) 03/22/18 02:23 MPV 9.3 fl (7.5-11.1) 03/22/18 02:23 Absolute Neuts (auto) 6.8 K/mm3 (1.5-8.0) 03/22/18 02: Neutrophils % 69.0 % (42.8-82.8) D 03/22/18 02:23 Lymphocytes % 23.2 % (8-40) D 03/22/18 02: Monocytes % 6.2 % (3.8-10.2) 03/22/18 02: Eosinophils % 0.5 % (0-4.5) 03/22/18 02: Basophils % 1.1 % (0-2.0) 03/22/18 02:23 Nucleated RBC % 0 % (0-0) 03/22/18 02: PT with INR 12.40 SEC (9.7-13.0) 03/22/18 11:03 INR 1.10 (0.83-1.09) H 03/22/18 11:03 Sodium 137 mmol/L (136-145) 03/22/18 02:23 Potassium 4.4 mmol/L (3.5-5.1) 03/22/18 02:23 Chloride 102 mmol/L (98-107) 03/22/18 02:23 Carbon Dioxide 26 mmol/L (21-32) 03/22/18 02:23 Anion Gap 9 MMOL/L (8-16) 03/22/18 02:23 BUN 12 mg/dL (7-18) 03/22/18 02:23 Creatinine 0.8 mg/dL (0.55-1.02) 03/22/18 02:23 Creat Clearance w eGFR > 60 (>60) 03/22/18 02:23 Random Glucose 135 mg/dL (74-106) H 03/22/18 02:23 Calcium 8.6 mg/dL (8.5-10.1) 03/22/18 02:23 Total Bilirubin 0.3 mg/dL (0.2-1.0) 03/22/18 02:23 AST 26 U/L (15-37) 03/22/18 02:23 ALT 51 U/L (12-78) 03/22/18 02:23 Alkaline Phosphatase 137 U/L (45-117) H 03/22/18 02:23 Creatine Kinase 129 IU/L (26-192) 03/22/18 02:23 Troponin I < 0.02 ng/ml (0.00-0.05) 03/22/18 02:23 Total Protein 8.4 g/dl (6.4-8.2) H 03/22/18 02:23 Albumin 3.9 g/dl (3.4-5.0) 03/22/18 02:23 Lipase 78 U/L (73-393) 03/22/18 02:23 Urine Color Ltyellow 03/22/18 02:47 Urine Appearance Cloudy 03/22/18 02:47 Urine pH 8.0 (5.0-8.0) 03/22/18 02:47 Ur Specific [place] 1.013 (1.001-1.035) 03/22/18 02:47 Urine Protein Negative (NEGATIVE) 03/22/18 02:47 Urine Glucose (UA) Negative (NEGATIVE) 03/22/18 02:47 Urine Ketones Negative (NEGATIVE) 03/22/18 02:47 Urine Blood Negative (NEGATIVE) 03/22/18 02:47 Urine Nitrite Negative (NEGATIVE) 03/22/18 02:47 Urine Bilirubin Negative (<2.0 mg/dL) 03/22/18 02:47 Urine Urobilinogen Negative mg/dL (0.2-1.0) 03/22/18 02:47 Ur Leukocyte Esterase Negative (NEGATIVE) 03/22/18 02:47 Blood Type B POSITIVE 03/22/18 11:00 Antibody Screen Negative 03/22/18 11:00 Imaging - Results Cat Scan: Report Reviewed Ultrasound: Report Reviewed Problem List - Problems (1) Abdominal pain Code(s): R10.9 - UNSPECIFIED ABDOMINAL PAIN Qualifiers: Abdominal location: generalized Qualified Code(s): R10.84 - Generalized abdominal pain Assessment/Plan ? symptomaitc cholelithiasis, gastritis, esophagitis, PUD. IVF, NPO until seen by Sx. Agree with PPI. Will need EGD to evaluate for the above. Screening colonoscopy as OP.
[2018-03-22 17:49] VITALS: BMI 36.1
--- NOTE | 2018-03-22 19:21 | CONSULT ---
Consult Consult Specialty:: General surgery Reason for Consultation:: Abdominal pain , cholelithiasis, cholecystitis. - History of Present Illness Chief Complaint: Epigastric abdominal pain since last night. History of Present Illness: Patient experienced sudden abdominal pain last night, radiating to the flank, and came to the ER. h/O nausea. Work up in the Er revealed gallstones - History Source History Provided By: Patient Limitations to Obtaining History: No Limitations - Past Medical History ...LMP: 11/28/16 - Past Surgical History Past Surgical History: Yes: None - Alcohol/Substance Use Hx Alcohol Use: No History of Substance Use: reports: None - Smoking History Smoking history: Never smoked Have you smoked in the past 12 months: No - Social History History of Recent Travel: No Home Medications - Allergies Allergies/Adverse Reactions: Allergies Allergy/AdvReac Type Severity Reaction Status Date / Time No Known Drug Allergies Allergy Verified 03/22/18 02:01 - Home Medications Home Medications: Ambulatory Orders Amlodipine Besylate 5 mg PO DAILY 12/08/16 Ibuprofen [Motrin -] 600 mg PO Q4H PRN #60 tablet 12/10/16 Physical Exam Vital Signs: Vital Signs Temperature 98.5 F 03/22/18 17:31 Pulse Rate 80 03/22/18 17:31 Respiratory Rate 18 03/22/18 17:31 Blood Pressure 154/79 03/22/18 17:31 O2 Sat by Pulse Oximetry (%) 98 03/22/18 14:16 Labs: CBC, BMP 03/22/18 02:23 03/22/18 02:23 Imaging - Results Cat Scan: Report Reviewed, Image Reviewed Ultrasound: Report Reviewed, Image Reviewed (Distended gallbladder with stones. Umbilical hernia with fat) Problem List - Problems (1) Abdominal pain Code(s): R10.9 - UNSPECIFIED ABDOMINAL PAIN Qualifiers: Abdominal location: generalized Qualified Code(s): R10.84 - Generalized abdominal pain (2) Cholelithiasis Code(s): K80.20 - CALCULUS OF GALLBLADDER W/O CHOLECYSTITIS W/O OBSTRUCTION Qualifiers: Cholelithiasis location: gallbladder Cholecystitis presence: without cholecystitis (3) Umbilical hernia Code(s): K42.9 - UMBILICAL HERNIA WITHOUT OBSTRUCTION OR GANGRENE Assessment/Plan Plan Laproscopic cholecystectomy tomorrow. Procedure explained , with risks , benefits and complications, including bile leak, bleeding, etc. Also plan to repair the umbilical hernia. Patient is informed, and consent obtained.
[2018-03-22] MEDS: morphine SULFATE 4 MG/ML VIAL IVPUSH PRN (21:17)
--- NOTE | 2018-03-23 08:50 | PN ---
Progress Note, Physician Chief Complaint: events and notes reviewed mild distress - Current Medication List Current Medications: Active Medications Sodium Chloride (Normal Saline -) 1,000 mls @ 125 mls/hr IV ASDIR TERE Last Admin: 03/22/18 23:52 Dose: 125 mls/hr Metoprolol Tartrate (Lopressor Injection -) 5 mg IVPUSH Q4H PRN PRN Reason: HYPERTENSION Morphine Sulfate (Morphine Sulfate) 4 mg IVPUSH Q6H PRN PRN Reason: PAIN LEVEL 6-10 Last Admin: 03/22/18 21:17 Dose: 4 mg Pantoprazole Sodium (Protonix Iv) 40 mg IVPUSH DAILY [facility] - Objective Vital Signs: Vital Signs Temperature 98.5 F 03/23/18 03:41 Pulse Rate 85 03/23/18 03:41 Respiratory Rate 18 03/23/18 03:41 Blood Pressure 122/76 03/23/18 03:41 O2 Sat by Pulse Oximetry (%) 98 03/22/18 23:41 Constitutional: Yes: Mild Distress Eyes: Yes: WNL HENT: Yes: WNL Neck: Yes: WNL Cardiovascular: Yes: WNL Respiratory: Yes: WNL Gastrointestinal: Yes: Tenderness Genitourinary: Yes: WNL Musculoskeletal: Yes: WNL Extremities: Yes: WNL Edema: No Peripheral Pulses WNL: Yes Integumentary: Yes: WNL Wound/Incision: Yes: Clean/Dry Neurological: Yes: WNL ...Motor Strength: WNL Psychiatric: Yes: WNL Labs: CBC, BMP 03/22/18 02:23 03/22/18 02:23 INR, PTT INR 1.10 (0.83-1.09) H 03/22/18 11:03 Problem List - Problems (1) Abdominal pain Code(s): R10.9 - UNSPECIFIED ABDOMINAL PAIN Qualifiers: Abdominal location: generalized Qualified Code(s): R10.84 - Generalized abdominal pain (2) Cholelithiasis Code(s): K80.20 - CALCULUS OF GALLBLADDER W/O CHOLECYSTITIS W/O OBSTRUCTION Qualifiers: Cholelithiasis location: gallbladder Cholecystitis presence: without cholecystitis Assessment/Plan GI AND SX EVAL CHOLCYSTECTOMY TODAY HIDA SCAN POSITIVE PAIN CONTROL NPO ADVANCE DIET POST-OP OOB TO CHAIR
[2018-03-23] MEDS: SODIUM CHLORIDE 1,000 ML IV SCH (09:12)
[2018-03-23] MEDS: morphine SULFATE 4 MG/ML VIAL IVPUSH PRN (09:40)
--- NOTE | 2018-03-23 09:55 | PN ---
Progress Note (short form) - Note Progress Note: HIDA scan results and Sx plan noted. Problem List - Problems (1) Abdominal pain Code(s): R10.9 - UNSPECIFIED ABDOMINAL PAIN Qualifiers: Abdominal location: generalized Qualified Code(s): R10.84 - Generalized abdominal pain
[2018-03-23] MEDS ORDERED: PANTOPRAZOLE SODIUM 40 MG VIAL IVPUSH SCH (10:00)
[2018-03-23] MEDS ORDERED: SUCCINYLCHOLINE CHLORIDE 200 MG/10 ML VIAL ONE ×2 (16:14→17:15)
[2018-03-23] MEDS ORDERED: fentaNYL CITRATE 250 MCG/5 ML VIAL ONE (17:15)
[2018-03-23] MEDS ORDERED: PROPOFOL 20 ML ONE (17:15)
[2018-03-23] MEDS ORDERED: ROCURONIUM BROMIDE 50 MG/5 ML VIAL ONE (17:15)
[2018-03-23] MEDS ORDERED: MIDAZOLAM HCL 2 MG/2 ML SINGLE DOSE VIAL ONE (17:15)
[2018-03-23] MEDS ORDERED: PT OWN MED DRAWER 7, Y5N ONE (17:16)
[2018-03-23] MEDS ORDERED: DEXAMETHASONE SOD PHOSPHATE 4 MG/1 ML VIAL ONE (17:16)
[2018-03-23] MEDS ORDERED: LIDOCAINE HCL/PF 2% SDV 5ML VIAL ONE (17:17)
[2018-03-23] MEDS ORDERED: ceFAZolin SODIUM 1 GM VIAL IVPB ONE (17:45)
[2018-03-23] MEDS ORDERED: ceFAZolin SODIUM 1 GM VIAL ONE (17:51)
[2018-03-23] MEDS ORDERED: METOPROLOL TARTRATE 5 MG/5 ML VIAL ONE (17:54)
[2018-03-23] MEDS ORDERED: GLYCOPYRROLATE 0.2 MG/1 ML VIAL ONE (18:24)
[2018-03-23] MEDS ORDERED: NEOSTIGMINE METHYLSULFATE 0.5 MG/ML - 10 ML MDV ONE (18:24)
[2018-03-23] MEDS ORDERED: KETOROLAC TROMETHAMINE 30 MG/1 ML VIAL ONE (18:26)
[2018-03-23] MEDS ORDERED: BUPIVACAINE HCL/PF 0.5% (5MG/ML) 10 ML VIAL IJ ONE (18:56)
--- NOTE | 2018-03-23 19:05 | OP ---
Operative Note - Note: Operative Date: 03/23/18 Pre-Operative Diagnosis: Cholelithiasis, with acute cholecystitis. Operation: Laparoscopic cholecystectomy, lysis of omental adhesions. Findings: Acutely inflammed gallbladder with calculii. Omemtal adhesions, to liver and gallbladder. Post-Operative Diagnosis: Other (Laparoscopic cholecysrtectomy, with omental adhesions.) Surgeon: Wenceslao Hicks Drying Unit Felting Machine Operator: Fannie Griffin Anesthesia: General Specimens Removed: Gallbladder with calculii. Estimated Blood Loss (mls): 10 Operative Report Dictated: Yes
[2018-03-23] MEDS ORDERED: ONDANSETRON 4 MG/2 ML VIAL IVPUSH PRN (19:11)
--- NOTE | 2018-03-23 19:12 | SURG ---
Surgery It Project Coordinator Note It Project Coordinator: Fannie Griffin PA-C Date of Service: 03/23/18 Diagnosis: Cholelithiasis, with acute cholecystitis. Procedure: Laparoscopic cholecystectomy, lysis of omental adhesions. I was present for the entirety of the operative procedure. For further detail, please refer to operative report. Visit type - Case Type Case Type: ED Admission - Emergency Emergency Visit: Yes Care time: The patient presented to the Emergency Department on the above date and was hospitalized for further evaluation of their emergent condition. - New patient This patient is new to me today: Yes Date on this admission: 03/23/18
[2018-03-23] MEDS ORDERED: CEFOXITIN SODIUM 1 GM in DEXTROSE 5%-WATER - 100 ML IVPB SCH (19:15)
[2018-03-23] MEDS ORDERED: METOPROLOL TARTRATE 5 MG/5 ML VIAL IVPB PRN (19:38)
[2018-03-23] MEDS ORDERED: morphine SULFATE 4 MG/ML VIAL IVPUSH PRN (19:38)
[2018-03-23] MEDS: LACTATED RINGERS SOLUTION 1,000 ML IV SCH (20:00)
[2018-03-24] MEDS: SODIUM CHLORIDE 1,000 ML IV SCH ×3 (08:01→22:04)
--- NOTE | 2018-03-24 08:36 | OP ---
DATE OF OPERATION: 03/23/2018 PREOPERATIVE DIAGNOSES: Cholelithiasis with acute cholecystitis. POSTOPERATIVE DIAGNOSES: Cholelithiasis and acute cholecystitis and omental adhesions. OPERATIVE PROCEDURE: Laparoscopic cholecystectomy with lysis of adhesions. SURGEON: Julia Hicks MD MOTEL CLERK: FLETCHER Gonzales ANESTHESIA: General. OPERATIVE DESCRIPTION: This 53-year-old woman was admitted with right upper quadrant abdominal pain and found to have acute cholecystitis. She was brought in for laparoscopic cholecystectomy. Consent was obtained. Risks, benefits, and complications had been discussed with the patient. Patient on IV antibiotics. She was brought to the operating room. General anesthesia was administered. The abdomen was painted and draped. Timeout was called. Antibiotics were given. An incision was made in the infraumbilical portion of the umbilicus which was deepened to incise the skin, subcutaneous tissue, and the linea alba. Two stay sutures of 2-0 Vicryl were obtained on either side of the midline. A 10- to 12-mm laparoscopic trocar was inserted into the abdominal cavity. This was anchored with 2-0 Vicryl. The abdomen was insufflated with carbon dioxide at 6 L/min, with maximum intra-abdominal pressure of 15 mmHg. A 10-mm camera was introduced into the abdominal cavity. Under direct vision, two 5-mm trocars were inserted in the right upper quadrant of the abdomen, one along the midclavicular line, another along the anterior axillary line. A third 5-mm trocar was inserted in the midline in the subxiphoid area; all noted entering the abdominal cavity under direct visualization of the camera. The gallbladder was grasped at the fundus with a grasper through the lateral 5-mm port site. This was retracted cephalad. Gallbladder was covered with omentum around the liver and the gallbladder. This was lysed with sharp and blunt dissection. The infundibulum of the gallbladder was visible, and this was grasped with another grasper. The gallbladder was pretty edematous, so was the peritoneum around the cystic duct and the common duct. The peritoneal reflection around the infundibulum of the gallbladder was incised, and the cystic duct was isolated circumferentially. This was then divided between clips. The cystic artery was brought into view and was likewise divided between clips. The gallbladder was then dissected off the gallbladder bed by incising the peritoneal reflection on either side of the gallbladder. The gallbladder fossa was erythematous, and the tissues were very swollen. The cholecystectomy was thus accomplished. Hemostasis was achieved as the dissection proceeded. An EndoCatch was then introduced through the umbilical port; the camera being switched to the subxiphoid port. The gallbladder was placed in the EndoCatch and retrieved out of the abdominal cavity. The gallbladder was full of stones. The gallbladder fossa was then irrigated with normal saline until all fluid return was clear. Hemostasis was satisfactory. The cholecystectomy was thus accomplished. The instruments were then removed. The linea alba in the midline was approximated with interrupted and [id number] 2-0 Vicryl sutures. The skin was approximated with buried interrupted 4-0 Monocryl sutures. Sponge count and instrument count were correct. Next, 0.5% Marcaine was infiltrated into the wound. The patient tolerated the procedure well, was extubated, and sent to the recovery room in satisfactory and stable condition. Sha LEWIS/[id number]
[2018-03-24] MEDS: PANTOPRAZOLE SODIUM 40 MG VIAL IVPUSH SCH (09:21)
[2018-03-24] MEDS: CEFOXITIN SODIUM 1 GM in DEXTROSE 5%-WATER - 100 ML IVPB SCH ×2 (09:23→18:01)
[2018-03-24] MEDS ORDERED: SIMETHICONE 80 MG TAB.CHEW (FP) PO PRN (09:24)
--- NOTE | 2018-03-24 09:38 | PN ---
Progress Note, Physician Chief Complaint: AWAKE ALERT STILL HAS ABD PAIN POD #1 CHOLCYSTECTOMY - Current Medication List Current Medications: Active Medications Cefoxitin Sodium 1 gm/ (Dextrose) 100 mls @ 200 mls/hr IVPB Q8H-IV TERE; Protocol Lactated Ringer's (Lactated Ringers Solution) 1,000 mls @ 75 mls/hr IV ASDIR TERE Last Admin: 03/23/18 20:00 Dose: 0 mls Sodium Chloride (Normal Saline -) 1,000 mls @ 125 mls/hr IV ASDIR TERE Last Admin: 03/24/18 08:01 Dose: Not Given Cefoxitin Sodium 1 gm/ (Dextrose) 100 mls @ 200 mls/hr IVPB Q8H [facility] Stop: 03/24/18 17:29 Last Admin: 03/24/18 09:23 Dose: 200 mls/hr Metoprolol Tartrate (Lopressor Injection -) 5 mg IVPB Q4H PRN PRN Reason: HYPERTENSION Morphine Sulfate (Morphine Sulfate) 4 mg IVPUSH Q6H PRN PRN Reason: PAIN LEVEL 6-10 Pantoprazole Sodium (Protonix Iv) 40 mg IVPUSH DAILY [facility] Last Admin: 03/24/18 09:21 Dose: 40 mg - Objective Vital Signs: Vital Signs Temperature 98.5 F 03/24/18 06:00 Pulse Rate 89 03/24/18 06:00 Respiratory Rate 20 03/24/18 06:00 Blood Pressure 123/65 03/24/18 06:00 O2 Sat by Pulse Oximetry (%) 95 03/23/18 20:15 Constitutional: Yes: Mild Distress Eyes: Yes: WNL HENT: Yes: WNL Neck: Yes: WNL Cardiovascular: Yes: WNL Respiratory: Yes: WNL Gastrointestinal: Yes: Distention, Tenderness, Rebound Genitourinary: Yes: WNL Musculoskeletal: Yes: Back Pain Extremities: Yes: WNL Edema: No Peripheral Pulses WNL: Yes Integumentary: Yes: WNL Wound/Incision: Yes: Clean/Dry Neurological: Yes: WNL ...Motor Strength: WNL Psychiatric: Yes: WNL Labs: CBC, BMP 03/22/18 02:23 03/22/18 02:23 INR, PTT INR 1.10 (0.83-1.09) H 03/22/18 11:03 Problem List - Problems (1) Abdominal pain Code(s): R10.9 - UNSPECIFIED ABDOMINAL PAIN Qualifiers: Abdominal location: generalized Qualified Code(s): R10.84 - Generalized abdominal pain (2) Cholelithiasis Code(s): K80.20 - CALCULUS OF GALLBLADDER W/O CHOLECYSTITIS W/O OBSTRUCTION Qualifiers: Cholelithiasis location: gallbladder Cholecystitis presence: without cholecystitis Assessment/Plan WILL CONTINUE ANTIBIOTICS OOB TO CHAIR RADHA BASS DC TOMORROW ADVANCE DIET TOLERATED
[2018-03-24] MEDS ORDERED: ACETAMINOPHEN 325 MG TABLET (FP) PO PRN (09:41)
[2018-03-24 10:33] LABS: HEMATOCRIT 39.3 % (32.4-45.2); MCH 29.5 pg (25.7-33.7); MCHC 33.2 g/dl (32.0-36.0); MEAN CELL VOLUME 88.7 fl (80-96); MEAN PLT VOLUME 9.1 fl (7.5-11.1); PLATELET COUNT 269 K/MM3 (134-434); RBC 4.43 M/mm3 (3.60-5.2); RDW 13.2 % (11.6-15.6); WHITE BLOOD COUNT 11.1 K/mm3 (4.0-10.0)
[2018-03-24 10:59] LABS: CHLORIDE 106 mmol/L (98-107); POTASSIUM 3.8 mmol/L (3.5-5.1); SODIUM 140 mmol/L (136-145)
[2018-03-24] MEDS: LACTATED RINGERS SOLUTION 1,000 ML IV SCH ×2 (11:15→22:05)
[2018-03-24 11:17] LABS: ALBUMIN 3.2 g/dl (3.4-5.0); ALK PHOS 116 U/L (45-117); ANION GAP 12 MMOL/L (8-16); BILIRUBIN,TOTAL 0.5 mg/dL (0.2-1.0); BLOOD UREA NITROGEN 9 mg/dL (7-18); CALCIUM 8.6 mg/dL (8.5-10.1); CO2 22 mmol/L (21-32); CREATININE 1.2 mg/dL (0.55-1.02); GLUCOSE,RANDOM 167 mg/dL (74-106); SGOT/AST 35 U/L (15-37); SGPT/ALT 55 U/L (12-78); TOT PROT 7.2 g/dl (6.4-8.2)
--- NOTE | 2018-03-24 12:14 | PN ---
Progress Note, Physician Chief Complaint: day #1 s/p lap brad - Current Medication List Current Medications: Active Medications Acetaminophen (Tylenol -) 650 mg PO Q6H PRN PRN Reason: PAIN OR FEVER Cefoxitin Sodium 1 gm/ (Dextrose) 100 mls @ 200 mls/hr IVPB Q8H-IV TERE; Protocol Lactated Ringer's (Lactated Ringers Solution) 1,000 mls @ 75 mls/hr IV ASDIR TERE Last Admin: 03/24/18 11:15 Dose: 75 mls/hr Sodium Chloride (Normal Saline -) 1,000 mls @ 125 mls/hr IV ASDIR TERE Last Admin: 03/24/18 08:01 Dose: Not Given Cefoxitin Sodium 1 gm/ (Dextrose) 100 mls @ 200 mls/hr IVPB Q8H [facility] Stop: 03/24/18 17:29 Last Admin: 03/24/18 09:23 Dose: 200 mls/hr Metoprolol Tartrate (Lopressor Injection -) 5 mg IVPB Q4H PRN PRN Reason: HYPERTENSION Pantoprazole Sodium (Protonix Iv) 40 mg IVPUSH DAILY [facility] Last Admin: 03/24/18 09:21 Dose: 40 mg Simethicone (Mylicon -) 80 mg PO Q4H PRN PRN Reason: GAS - Objective Vital Signs: Vital Signs Temperature 98.5 F 03/24/18 06:00 Pulse Rate 89 03/24/18 06:00 Respiratory Rate 20 03/24/18 06:00 Blood Pressure 123/65 03/24/18 06:00 O2 Sat by Pulse Oximetry (%) 95 03/23/18 20:15 Labs: CBC, BMP 03/24/18 09:52 03/24/18 09:52 INR, PTT INR 1.10 (0.83-1.09) H 03/22/18 11:03 Assessment/Plan doing well s/p lap brad, no anesthetic issues/complications
--- NOTE | 2018-03-24 12:15 | PN ---
Progress Note, Physician Chief Complaint: Patient has no complaints. Wound is clean. Patient can be discharged home tomorrow with oral antibiotics. m - Current Medication List Current Medications: Active Medications Acetaminophen (Tylenol -) 650 mg PO Q6H PRN PRN Reason: PAIN OR FEVER Cefoxitin Sodium 1 gm/ (Dextrose) 100 mls @ 200 mls/hr IVPB Q8H-IV TERE; Protocol Lactated Ringer's (Lactated Ringers Solution) 1,000 mls @ 75 mls/hr IV ASDIR TERE Last Admin: 03/24/18 11:15 Dose: 75 mls/hr Sodium Chloride (Normal Saline -) 1,000 mls @ 125 mls/hr IV ASDIR TERE Last Admin: 03/24/18 08:01 Dose: Not Given Cefoxitin Sodium 1 gm/ (Dextrose) 100 mls @ 200 mls/hr IVPB Q8H [facility] Stop: 03/24/18 17:29 Last Admin: 03/24/18 09:23 Dose: 200 mls/hr Metoprolol Tartrate (Lopressor Injection -) 5 mg IVPB Q4H PRN PRN Reason: HYPERTENSION Pantoprazole Sodium (Protonix Iv) 40 mg IVPUSH DAILY T[facility] Last Admin: 03/24/18 09:21 Dose: 40 mg Simethicone (Mylicon -) 80 mg PO Q4H PRN PRN Reason: GAS - Objective Vital Signs: Vital Signs Temperature 98.5 F 03/24/18 06:00 Pulse Rate 89 03/24/18 06:00 Respiratory Rate 20 03/24/18 06:00 Blood Pressure 123/65 03/24/18 06:00 O2 Sat by Pulse Oximetry (%) 95 03/23/18 20:15 Labs: CBC, BMP 03/24/18 09:52 03/24/18 09:52 INR, PTT INR 1.10 (0.83-1.09) H 03/22/18 11:03 Problem List - Problems (1) Abdominal pain Code(s): R10.9 - UNSPECIFIED ABDOMINAL PAIN Qualifiers: Abdominal location: generalized Qualified Code(s): R10.84 - Generalized abdominal pain (2) Cholelithiasis Code(s): K80.20 - CALCULUS OF GALLBLADDER W/O CHOLECYSTITIS W/O OBSTRUCTION Qualifiers: Cholelithiasis location: gallbladder Cholecystitis presence: without cholecystitis (3) Umbilical hernia Code(s): K42.9 - UMBILICAL HERNIA WITHOUT OBSTRUCTION OR GANGRENE
[2018-03-24] MEDS ORDERED: CEFOXITIN SODIUM 1 GM in DEXTROSE 5%-WATER - 100 ML IVPB SCH (19:30)
--- NOTE | 2018-03-25 09:30 | DS ---
Physical Examination Vital Signs: Vital Signs Temperature 98.1 F 03/25/18 06:00 Pulse Rate 64 03/25/18 06:00 Respiratory Rate 18 03/25/18 06:00 Blood Pressure 131/64 03/25/18 06:00 O2 Sat by Pulse Oximetry (%) 96 03/24/18 21:00 Findings/Remarks: PASSING FLATULENCE NAD WALKING , COMFORTABLE Constitutional: Yes: No Distress Eyes: Yes: WNL HENT: Yes: WNL Neck: Yes: WNL Cardiovascular: Yes: WNL Respiratory: Yes: WNL Gastrointestinal: Yes: WNL Musculoskeletal: Yes: WNL Extremities: Yes: WNL Edema: No Peripheral Pulses WNL: Yes Integumentary: Yes: WNL Wound/Incision: Yes: Clean/Dry Neurological: Yes: WNL ...Motor Strength: WNL Psychiatric: Yes: WNL Labs: CBC, BMP 03/24/18 09:52 03/24/18 09:52 Discharge Summary Reason For Visit: ABDOMINAL PAIN, CHOLELITHIASIS Current Active Problems Abdominal pain (Acute) Cholelithiasis (Acute) Umbilical hernia (Acute) Procedures: Principal: LAPCHOL Hospital Course: ADMITTED WITH CHOLLITHIASIS/GALLBLADDER ADHESIONS, LAPCHOL DONE POD #2 TODAY WILL DC WITH F/U TOMORROW AT PMD OFFICE Condition: Stable - Instructions Diet, Activity, Other Instructions: SEE YOUR PMD DR JUAN TOMORROW CONTINUE LIQUID DIET AND ADVANCE TOLERATED SLOWLY Referrals: David Oneil MD [Primary Care Provider] - Disposition: HOME - Home Medications Comprehensive Discharge Medication List: Ambulatory Orders Amlodipine Besylate 5 mg PO DAILY 12/08/16 Ibuprofen [Motrin -] 600 mg PO Q4H PRN #60 tablet 12/10/16 Acetaminophen [Tylenol .Regular Strength -] 650 mg PO Q6H PRN tablet 03/25/18
[2018-03-25] MEDS: PANTOPRAZOLE SODIUM 40 MG VIAL IVPUSH SCH (10:08)
[2018-03-25] MEDS ORDERED: CEFOXITIN SODIUM 1 GM in DEXTROSE 5%-WATER - 100 ML IVPB SCH (11:15)
[2018-03-25 11:33] VITALS: BP 152/75; PULSE 70; TEMP 98.5
--- NOTE | 2018-03-27 18:06 | PATH ---
Surgical Pathology Report Patient Name: SHELLEY KERNS [facility]. Rec. #: [id number] /Age/Gender: 1965 (Age: 53) / F Account: [id number] Location: [facility] MED/SURG Taken: 03/23/2018 Received: 03/26/2018 Reported: 03/27/2018 Physicians: Sha Logan M.D. Specimen(s) Received GALLBLADDER Clinical History Cholecystitis, cholelithiasis Final Diagnosis GALLBLADDER, CHOLECYSTECTOMY: ACUTE SUPERIMPOSED ON CHRONIC CHOLECYSTITIS. CHOLELITHIASIS Electronically Signed Luisito Lara M.D. Gross Description Received in formalin, labeled "gallbladder," is a 7.0 x 3.0 x 2.3 cm. gallbladder with a 0.2 cm. in length portion of cystic duct attached. The outer surface is carlos-leigh with focal defects and varies from smooth to shaggy. The lumen contains a carlos, tenacious bile as well as abundant yellow, irregular, bosselated choleliths ranging from 0.1-0.7 cm in greatest dimension. The mucosa is carlos-green and focal eroded. The wall of the gallbladder averages 0.1 cm. in thickness. [employer] sections are submitted in one cassette. No 03/26/2018 [facility]03/26/2018
== END 2018-03-25 13:40 | disposition home or self-care (01) | DRG 263 ==
LOC: JER 01:37 → JERBED 10:45 → UNDOADMOB 10:45 → INTOOBSV 10:45 → JASUSAT 17:00 → J8W 17:15 → JERBED 17:15 → JASUSAT 17:30 → J8W 17:30 → JASUSAT 03-23 07:00 → J8W 03-24 12:27
PROVIDERS: ADMIT Family Medicine; ATTEND Family Medicine
PROC: 0DNU4ZZ Release Omentum, Percutaneous Endoscopic Approach (ICD-10-PCS; 2018-03-23)
PROC: 0FT44ZZ Resection of Gallbladder, Percutaneous Endoscopic Approach (ICD-10-PCS; principal; 2018-03-23 15:00)
DX: K80.00 Calculus of gallbladder with acute cholecystitis without obstruction (principal); K42.9 Umbilical hernia without obstruction or gangrene; R10.11 Right upper quadrant pain; K66.0 Peritoneal adhesions (postprocedural) (postinfection); K82.8 Other specified diseases of gallbladder
CPT/HCPCS: 36415; 71045-TC-FY; 74177-TC; 76705-TC; 78226-TC; 80053; 81003; 82550; 83690; 84484; 85025; 85027; 85610; 86850; 86900; 86901; 87086; 88304-TC; 93005; 93010; 94760; 99285-25; A9537; J7030

== ENCOUNTER → 2021-01-20 | Day surgery (SDC) | payer OTHER | END | disposition home or self-care (01) | LOC: FMAMMOTONE 11:25 | PROVIDERS: ATTEND Surgery | PROC: 0HBT3ZX Excision of Right Breast, Percutaneous Approach, Diagnostic (ICD-10-PCS; principal; 2021-01-20) | DX: D05.11 Intraductal carcinoma in situ of right breast (principal); Z17.0 Estrogen receptor positive status [ER+]; R92.8 Other abnormal and inconclusive findings on diagnostic imaging of breast | CPT/HCPCS: 19081; 76098-TC-FY; 87899; A4648 ==

== ENCOUNTER 2021-03-02 04:33 | Day surgery (SDC) | payer OTHER ==
[2021-02-26 17:08] VITALS: BMI 34.9
[2021-03-02] MEDS ORDERED: METHYLENE BLUE 50 MG/10 ML AMPUL ONE (15:07)
[2021-03-02] MEDS ORDERED: LIDOCAINE HCL 1%, 10 MG/ML (20ML VIAL) ONE (15:07)
[2021-03-02] MEDS ORDERED: MIDAZOLAM HCL 2 MG/2 ML SINGLE DOSE VIAL ONE (15:22)
[2021-03-02] MEDS ORDERED: SUCCINYLCHOLINE CHLORIDE 200 MG/10 ML SYRINGE ONE (15:23)
[2021-03-02] MEDS ORDERED: PROPOFOL 20 ML ONE (15:33)
[2021-03-02] MEDS ORDERED: DEXAMETHASONE SOD PHOSPHATE 4 MG/1 ML VIAL ONE (15:34)
[2021-03-02] MEDS ORDERED: ceFAZolin SODIUM 1 GM VIAL ONE (15:34)
[2021-03-02] MEDS ORDERED: LIDOCAINE HCL/PF 2% SDV 5ML VIAL ONE (15:34)
[2021-03-02] MEDS ORDERED: LIDOCAINE HCL 1%, 10 MG/ML (20ML VIAL) PNB ONE (15:39)
[2021-03-02] MEDS ORDERED: ONDANSETRON 4 MG/2 ML VIAL IVPUSH PRN (15:43)
[2021-03-02] MEDS ORDERED: oxyCODONE HCL 5 MG TABLET PO PRN ×2 (15:43)
[2021-03-02] MEDS ORDERED: LACTATED RINGERS SOLUTION 1,000 ML IV SCH (15:45)
[2021-03-02 16:39] VITALS: PULSE 64
[2021-03-02 18:03] VITALS: BP 123/66; TEMP 97.8
== END 2021-03-02 05:55 | disposition home or self-care (01) ==
LOC: JASU-SURG 04:33
PROVIDERS: ATTEND Surgery
PROC: 0HBT0ZZ Excision of Right Breast, Open Approach (ICD-10-PCS; principal; 2021-03-02 12:00)
DX: D05.11 Intraductal carcinoma in situ of right breast (principal)
CPT/HCPCS: 19281; 76098-TC-FY; 88307-TC; 88342-TC; Q9968

== ENCOUNTER 2021-12-21 09:52 | Observation (INO) | payer OTHER ==
[2021-12-21 10:04] VITALS: BMI 37.2
[2021-12-21] MEDS ORDERED: ASPIRIN 81 MG CHEWABLE TABLETS PO ONE (11:24)
[2021-12-21] MEDS ORDERED: ASPIRIN 81 MG CHEWABLE TABLETS ONE (11:27)
[2021-12-21 11:58] LABS: BASO % 0.7 % (0-2.0); EOS % 1.2 % (0-4.5); LYMPH % 31.3 % (8-40); MCHC 33.3 g/dl (32.0-36.0); MEAN PLT VOLUME 9.9 fl (7.5-11.1); MONO % 9.9 % (3.8-10.2); NEUT % 56.9 % (42.8-82.8); PLATELET COUNT 258 10^3/uL (134-434); RBC 4.66 M/mm3 (3.60-5.2); RDW 13.9 % (11.6-15.6); WHITE BLOOD COUNT 7.1 K/mm3 (4.0-10.0)
[2021-12-21 12:22] LABS: ALBUMIN 3.9 g/dl (3.4-5.0); BLOOD UREA NITROGEN 11.3 mg/dL (7-18); CALCIUM 9.7 mg/dL (8.5-10.1)
[2021-12-21 12:25] LABS: CREATININE 0.7 mg/dL (0.55-1.3)
[2021-12-21 12:27] LABS: BILIRUBIN,TOTAL 0.5 mg/dL (0.2-1); TOT PROT 8.6 g/dl (6.4-8.2)
[2021-12-21] MEDS ORDERED: LIDOCAINE 5% TOPICAL PATCH ONE (15:41)
[2021-12-21] MEDS: LIDOCAINE 5% TOPICAL PATCH TP SCH (15:44)
[2021-12-21] MEDS ORDERED: ACETAMINOPHEN 325 MG TABLET (FP) PO PRN (21:23)
[2021-12-21] MEDS ORDERED: LIDOCAINE PATCH REMOVAL MC SCH (22:00)
[2021-12-22 08:12] LABS: ALBUMIN 3.6 g/dl (3.4-5.0); BLOOD UREA NITROGEN 14.4 mg/dL (7-18); CALCIUM 9.3 mg/dL (8.5-10.1)
[2021-12-22 08:15] LABS: CREATININE 0.7 mg/dL (0.55-1.3)
[2021-12-22 08:16] LABS: BILIRUBIN,TOTAL 0.6 mg/dL (0.2-1)
[2021-12-22] MEDS: LIDOCAINE 5% TOPICAL PATCH TP SCH (10:04)
[2021-12-22 13:13] VITALS: BP 138/88; PULSE 87; TEMP 98.3
== END 2021-12-22 14:30 | disposition home or self-care (01) ==
LOC: JER 09:52 → JERBED 12:42 → J4W 12-22 00:39
PROVIDERS: ADMIT Family Medicine; ATTEND Family Medicine
DX: R06.02 Shortness of breath (principal); M54.2 Cervicalgia; R10.84 Generalized abdominal pain; R07.1 Chest pain on breathing; Z91.14 Patient's other noncompliance with medication regimen; R07.9 Chest pain, unspecified; I10 Essential (primary) hypertension; C50.919 Malignant neoplasm of unspecified site of unspecified female breast
CPT/HCPCS: 36415; 71045-TC-FY; 71275-TC; 72040-TC; 76705-TC; 80053; 80061; 83690; 84484; 85025; 85379; 93005; 93010; 93880-TC; 99285-25; C9803-CS; G0378; U0003; U0005

== ENCOUNTER 2025-03-19 16:11 | Emergency (ER) | payer OTHER ==
[2025-03-19 16:18] VITALS: BP 149/97; PULSE 80; RESP 18; TEMP 97.9; BMI 35.6
[2025-03-19] MEDS ORDERED: ACETAMINOPHEN INJECTION 100 ML ONE (17:07)
[2025-03-19] MEDS: SODIUM CHLORIDE 1,000 ML IV STA (17:21)
[2025-03-19] MEDS: ACETAMINOPHEN 1000 MG/100 ML BAG IVPB ONE (17:22)
[2025-03-19] MEDS ORDERED: LIDOCAINE 5% TOPICAL PATCH ONE (17:37)
[2025-03-19] MEDS: LIDOCAINE 5% TOPICAL PATCH TP ONE (17:38)
[2025-03-19 17:47] LABS: ABSOLUTE IMMATURE GRANULOCYTES 0.02 x10^3/uL (0.0-0.031); BASOPHILS # 0.05 x10^3/uL (0.01-0.08); EOSINOPHIL % 2.1 % (0.7-5.8); EOSINOPHILS # 0.17 x10^3/uL (0.04-0.36); MCHC 32.7 g/dl (32.2-35.5); MEAN CELL VOLUME 89.9 fl (79.4-94.8); MEAN PLT VOLUME 11.1 fl (9.4-12.3); MONOCYTE # 0.63 x10^3/uL (0.24-0.86); MONOCYTE % 7.8 % (4.7-12.5); RDW 13.2 % (12.3-16.6)
[2025-03-19 18:13] LABS: GLUCOSE,RANDOM 98.0 mg/dL (74-106)
[2025-03-19 18:14] LABS: TOT PROT 8.2 g/dl (6.4-8.2)
[2025-03-19 18:15] LABS: CO2 23.0 mmol/L (21-32)
[2025-03-19 18:16] LABS: ALK PHOS 130.0 U/L (40-150)
[2025-03-19 18:19] LABS: CREATININE 0.77 mg/dL (0.55-1.3); SGOT/AST 37.0 U/L (5-34); SGPT/ALT 48.0 U/L (0-55)
[2025-03-19 18:26] LABS: N-TERMINAL BNP 32.1 pg/mL (0-299.9)
[2025-03-19 20:24] LABS: HCV DIAGNOSTIC IN-HOUSE W/RFLX NON-REACTIVE (NONREACTIVE); HIV INTERPRETATION NEGATIVE (NEGATIVE)
[2025-03-20] MEDS ORDERED: LIDOCAINE PATCH REMOVAL MC SCH (05:00)
== END 2025-03-19 19:20 | disposition home or self-care (01) ==
LOC: JER 16:11
PROC: 3E033NZ Introduction of Analgesics, Hypnotics, Sedatives into Peripheral Vein, Percutaneous Approach (ICD-10-PCS; principal; 2025-03-19)
PROC: 3E0337Z Introduction of Electrolytic and Water Balance Substance into Peripheral Vein, Percutaneous Approach (ICD-10-PCS; 2025-03-19)
DX: M94.0 Chondrocostal junction syndrome [Tietze] (principal); R07.89 Other chest pain; M25.512 Pain in left shoulder
CPT/HCPCS: 36415; 71045-TC-FY; 73030-TC-LT-FY; 80053; 83735; 83880; 84484; 85025; 86803; 87389; 87637-QW; 93005; 93010; 99285-25